=== PATIENT | female | born 1970 | race Caucasian/White ===

== ENCOUNTER 2016-12-05 11:07 | Emergency (ER) | payer OTHER ==
[~2016-12-05 11:07] MED LIST: BACDS PO; CAT2 PO; COREG3 PO; COZ25 PO; DURA25 TOP; ESTRADIOL2 MG PO; FLEX PO; FLORASTOR250 MG PO; HALF81 PO; IBU800 PO; LIPITOR40 PO; NEUR300 PO; NEUR800 PO; OXYCOD PO; PCET PO; PERCOCET1 TA4 PO; XANAX1 MG PO
== END 2016-12-05 11:20 | disposition home or self-care (01) ==
LOC: ER 11:07
DX: M54.5 Low back pain (principal); G89.29 Other chronic pain; I25.2 Old myocardial infarction; Z88.6 Allergy status to analgesic agent; Z88.5 Allergy status to narcotic agent; Z88.1 Allergy status to other antibiotic agents; Z91.041 Radiographic dye allergy status; Z79.899 Other long term (current) drug therapy; Z79.82 Long term (current) use of aspirin
CPT/HCPCS: 96372; 99283; J1170

== ENCOUNTER 2016-12-14 12:05 | Emergency (ER) | payer OTHER | END 2016-12-14 12:35 | disposition home or self-care (01) | LOC: ER 12:05 | DX: M54.5 Low back pain (principal); Z88.5 Allergy status to narcotic agent; Z88.6 Allergy status to analgesic agent; Z88.8 Allergy status to other drugs, medicaments and biological substances; Z91.041 Radiographic dye allergy status; Z79.82 Long term (current) use of aspirin; Z79.891 Long term (current) use of opiate analgesic; Z79.899 Other long term (current) drug therapy | CPT/HCPCS: 96372; 99283; J1170; J2405 ==

== ENCOUNTER 2016-12-18 20:01 | Emergency (ER) | payer OTHER | END 2016-12-18 20:21 | disposition home or self-care (01) | LOC: ER 20:01 | DX: M54.5 Low back pain (principal); G89.29 Other chronic pain; Z76.5 Malingerer [conscious simulation]; I10 Essential (primary) hypertension; Z88.5 Allergy status to narcotic agent; Z91.041 Radiographic dye allergy status; Z88.8 Allergy status to other drugs, medicaments and biological substances; Z79.82 Long term (current) use of aspirin; Z79.899 Other long term (current) drug therapy | CPT/HCPCS: 99283 ==